=== PATIENT | male | born 1945 | race Caucasian/White ===

== ENCOUNTER 2017-08-17 07:00 | Inpatient (IN) ==
[2017-08-17] MEDS ORDERED: GLUCAGON 1 MG VIAL IM PRN (09:00)
[2017-08-17] MEDS ORDERED: DEXTROSE 50% 25 GM/50 ML VIAL IV PRN (09:00)
[2017-08-17 10:56] LABS: Basophils # 0.1 10*3/uL (0.0-0.2); Basophils % 0.8 % (0.0-0.8); Eosinophils # 0.3 10*3/uL (0.0-0.87); Eosinophils % 3.2 % (0.00-10.9); Hematocrit 40.2 VOL% (42.0-52.0); Hemoglobin 13.6 GM/DL (14.0-18.0); Immature Granulocytes % 0.4 %; Immature Granulocytes Absolute 0.04 #; Lymphocytes # 2.4 10*3/uL (1.4-4.0); Lymphocytes % 26.5 % (21.2-54.2); Mean Corpuscular HGB Conc 33.8 GM/DL (32-36); Mean Corpuscular Hemoglobin 31 PG (27-34); Mean Corpuscular Volume 90.5 FL (87-102); Mean Platelet Volume 11.7 FL (9.6-12.0); Monocytes # 0.6 10*3/uL (0.11-0.8); Monocytes % 6.6 % (1.7-12.7); Neutrophils # 5.7 10*3/uL (1.4-7.4); Neutrophils % 62.5 % (38.7-73.9); Platelet Count 232 T/CUMM (130-400); Red Blood Count 4.44 MC/CUMM (3.8-5.5); Red Cell Distribution Width 13.4 % (9.3-17.3); White Blood Count 9.1 T/CUMM (4-12)
[2017-08-17 11:28] LABS: Albumin 3.9 G/DL (3.4-5.0); Bilirubin,Total 0.5 MG/DL (0.2-1.0); Calcium 9.1 MG/DL (8.5-10.1); Total Protein 7.2 G/DL (6.4-8.3)
[2017-08-17] MEDS: METOPROLOL TARTRATE 25 MG TABLET PO SCH ×2 (11:56→21:23)
[2017-08-17] MEDS: CHLORHEXIDINE 0.12% ORAL RINSE 60 ML BOTTLE SWISH/SPIT SCH ×2 (11:56→21:23)
[2017-08-17 13:27] LABS: ABG HCO3 26.1 MMOL/L (20-26); ABG Oxygen Saturation 94.5 % (95-100); ABG PCO2 47.2 MM HG (35-48); ABG PH 7.379 (7.35-7.45); ABG PO2 74.3 MM HG (80-95); ABG TCO2 24.4 MMOL/L (23-27)
[2017-08-17] MEDS: CHLORHEXIDINE 4% SOLN 118 ML BOTTLE TOP SCH ×2 (15:17→21:23)
[2017-08-17] MEDS ORDERED: TAMSULOSIN 0.4 MG CAPSULE PO SCH (21:00)
[2017-08-17] MEDS ORDERED: ATORVASTATIN 40 MG TABLET PO SCH (21:00)
[2017-08-17] MEDS ORDERED: ZALEPLON 5 MG CAPSULE PO PRN (21:00)
[2017-08-17] MEDS: NABUMETONE 500 MG TABLET PO SCH (21:23)
[2017-08-18] MEDS ORDERED: PAPAVERINE 60 MG/2 ML VIAL ONE (05:15)
[2017-08-18] MEDS ORDERED: VANCOMYCIN 1,000 MG VIAL ONE (05:16)
[2017-08-18 05:17] LABS: Basophils # 0.1 10*3/uL (0.0-0.2); Basophils % 0.6 % (0.0-0.8); Eosinophils # 0.3 10*3/uL (0.0-0.87); Eosinophils % 3.1 % (0.00-10.9); Hematocrit 36.1 VOL% (42.0-52.0); Hemoglobin 12.3 GM/DL (14.0-18.0); Immature Granulocytes % 0.3 %; Immature Granulocytes Absolute 0.03 #; Lymphocytes # 1.9 10*3/uL (1.4-4.0); Lymphocytes % 21.1 % (21.2-54.2); Mean Corpuscular HGB Conc 34.1 GM/DL (32-36); Mean Corpuscular Hemoglobin 31 PG (27-34); Mean Corpuscular Volume 89.8 FL (87-102); Mean Platelet Volume 12.1 FL (9.6-12.0); Monocytes # 0.6 10*3/uL (0.11-0.8); Monocytes % 6.3 % (1.7-12.7); Neutrophils # 6.1 10*3/uL (1.4-7.4); Neutrophils % 68.6 % (38.7-73.9); Platelet Count 221 T/CUMM (130-400); Red Blood Count 4.02 MC/CUMM (3.8-5.5); Red Cell Distribution Width 13.4 % (9.3-17.3); White Blood Count 8.9 T/CUMM (4-12)
[2017-08-18] MEDS ORDERED: FAMOTIDINE 20 MG TABLET PO ONE (05:30)
[2017-08-18] MEDS ORDERED: DIAZEPAM 5 MG TABLET PO ONE (05:30)
[2017-08-18] MEDS ORDERED: SUFentanil 250 MCG/5 ML AMP ONE (05:40)
[2017-08-18] MEDS ORDERED: MIDAZOLAM 10 MG/2 ML VIAL ONE (05:40)
[2017-08-18] MEDS: METOPROLOL TARTRATE 25 MG TABLET PO SCH ×4 (05:44→21:59)
[2017-08-18] MEDS: CHLORHEXIDINE 4% SOLN 118 ML BOTTLE TOP SCH ×2 (05:46→11:56)
[2017-08-18] MEDS: CHLORHEXIDINE 0.12% ORAL RINSE 60 ML BOTTLE SWISH/SPIT SCH ×3 (05:47→22:15)
[2017-08-18 05:50] LABS: Albumin 2.9 G/DL (3.4-5.0); Bilirubin,Total 0.9 MG/DL (0.2-1.0); Calcium 8.7 MG/DL (8.5-10.1); Osmolality,Calculated 286.8 MOS/KG (273-304); Total Protein 6.3 G/DL (6.4-8.3)
[2017-08-18 05:56] LABS: PT Patient Result 10.6 SECS
[2017-08-18] MEDS ORDERED: CEFUROXIME INJ 1,500 MG in SYRINGE 1 EACH IV ONE (06:00)
[2017-08-18] MEDS ORDERED: LEVOTHYROXINE 50 MCG TABLET PO SCH (06:30)
[2017-08-18] MEDS ORDERED: glipiZIDE 5 MG TABLET PO SCH (07:30)
[2017-08-18 07:40] LABS: ABG Base Excess 2.6 MMOL/L (-2.5-2.5); ABG HCO3 26.8 MMOL/L (20-26); ABG Oxygen Saturation 99.6 % (95-100); ABG PH 7.422 (7.35-7.45); ABG TCO2 24.3 MMOL/L (23-27); Glucose Heart Surgery 115 MG/DL (74-106); Hematocrit Heart Surgery 35.2 PERCENT (42-52); Hemoglobin Heart Surgery 11.4 G/DL (14.0-18.0); PH Patient Temp Arterial 7.422; Patient Temperature 37 CELCIUS; Potassium Heart/CVR 3.8 MMOL/L (3.5-5.1); Sodium Heart/CVR 141 MMOL/L (135-145)
[2017-08-18] MEDS ORDERED: PHENYLEPHRINE DRIP 40 MG/250 ML PREMIX IV ONE (07:55)
[2017-08-18] MEDS ORDERED: POTASSIUM CHLORIDE RIDER 100 ML IV ONE (07:56)
[2017-08-18] MEDS ORDERED: CALCIUM CHLORIDE 1,000 MG/10 ML SYRINGE IV ONE (07:56)
[2017-08-18] MEDS ORDERED: SODIUM BICARBONATE 50 MEQ/50 ML SYRINGE IV ONE ×2 (07:57→09:47)
[2017-08-18] MEDS ORDERED: ALBUMIN 5% 12.5 GM/250 ML VIAL IV ONE (07:57)
[2017-08-18] MEDS ORDERED: EPINEPHrine 1 MG/10 ML SYRINGE ONE (07:57)
[2017-08-18] MEDS ORDERED: NITROPRUSSIDE 50 MG/2 ML VIAL ONE (07:57)
[2017-08-18 08:15] LABS: Apearance,Urine CLEAR (Clear); Bilirubin,Urine Negative (Negative); Blood, Urine Negative (Negative); Glucose,Urine (UA) Negative (Negative); Ketones,Urine Negative (Negative); Mucus,Urine Occasional /LPF (Occasional); Nitrite,Urine Negative (Negative); Protein,Urine Negative; RBC,Urine 1 /HPF (0-4); Urine Color Yellow (Yellow); Urine Specific Gravity 1.015 (1.001-1.035); Urine Urobilinogen < 2.0 EU/DL (0.2-1.0); WBC,Urine <1 /HPF (0-6)
[2017-08-18 08:44] LABS: PCO2 Patient Temp Venous 36.5 MM HG; PH Patient Temp Venous 7.486; PO2 Patient Temp Venous 43.1 MM HG; Potassium Heart/CVR 4.2 MMOL/L (3.5-5.1); VBG Base Excess 4.2 MEQ/L (0-4); VBG HCO3 28.1 MEQ/L (24-28); VBG Oxygen Saturation 86.8 %; VBG PCO2 40.2 MMHG (41-51); VBG PH 7.456; VBG PO2 49.4 MMHG (17-40)
[2017-08-18] MEDS ORDERED: ASPIRIN CHEW 81 MG TABLET PO SCH (09:00)
[2017-08-18] MEDS ORDERED: GABAPENTIN 300 MG CAPSULE PO SCH (09:00)
[2017-08-18 09:16] LABS: Hematocrit Heart Surgery 24.2 PERCENT (42-52); Hemoglobin Heart Surgery 7.8 G/DL (14.0-18.0); PH Patient Temp Venous 7.533; PO2 Patient Temp Venous 38.6 MM HG; Potassium Heart/CVR 4.5 MMOL/L (3.5-5.1); VBG Base Excess 4.3 MEQ/L (0-4); VBG HCO3 28.1 MEQ/L (24-28); VBG Oxygen Saturation 83.8 %; VBG PCO2 35.2 MMHG (41-51); VBG PH 7.502; VBG PO2 44.3 MMHG (17-40)
[2017-08-18 09:44] LABS: ABG Base Excess 2.7 MMOL/L (-2.5-2.5); ABG HCO3 26.9 MMOL/L (20-26); ABG Oxygen Saturation 99.8 % (95-100); ABG PCO2 34.3 MM HG (35-48); ABG PH 7.487 (7.35-7.45); ABG TCO2 23.9 MMOL/L (23-27); Glucose Heart Surgery 207 MG/DL (74-106); Hematocrit Heart Surgery 26.9 PERCENT (42-52); Hemoglobin Heart Surgery 8.7 G/DL (14.0-18.0); Ionized Calcium Arterial 1.25 MMOL/L (1.21-1.46); PCO2 Patient Temp Arterial 34.3 MMHG; PH Patient Temp Arterial 7.487; Patient Temperature 37 CELCIUS; Sodium Heart/CVR 137 MMOL/L (135-145)
[2017-08-18] MEDS ORDERED: MAGNESIUM SULFATE 1 GM/2 ML VIAL ONE (09:47)
[2017-08-18] MEDS ORDERED: PROTAMINE SULFATE 250 MG/25 ML VIAL IV ONE (09:47)
[2017-08-18] MEDS ORDERED: ALBUMIN 25% 25 GM/100 ML VIAL IV ONE (09:47)
[2017-08-18] MEDS ORDERED: HEPARIN 10,000 UNIT/10 ML VIAL ONE (09:47)
[2017-08-18] MEDS ORDERED: DEXTROSE 5% KCL 20 MEQ 20 MEQ/1,000 ML BAG IV ONE (09:47)
[2017-08-18] MEDS ORDERED: methylPREDNISolone SOD SUC 1,000 MG/8 ML VIAL ONE (09:47)
[2017-08-18] MEDS ORDERED: FUROSEMIDE 20 MG/2 ML VIAL ONE (09:48)
[2017-08-18] MEDS ORDERED: MANNITOL 12.5 GM/50 ML VIAL IV ONE (09:48)
[2017-08-18] MEDS ORDERED: MAGNESIUM SULF RIDER 2 GM in PREMIX 1 EACH IV PRN (10:09)
[2017-08-18] MEDS ORDERED: MIDAZOLAM 2 MG/2 ML VIAL IV PRN (10:09)
[2017-08-18] MEDS ORDERED: DEXTROSE 50% 25 GM/50 ML VIAL IV PRN ×2 (10:09)
[2017-08-18] MEDS ORDERED: VECURONIUM 10 MG VIAL IV PRN ×2 (10:09)
[2017-08-18] MEDS ORDERED: CALCIUM CHLORIDE 1,000 MG/10 ML SYRINGE IV PRN (10:09)
[2017-08-18] MEDS ORDERED: PHENYLEPHRINE DRIP 40 MG/250 ML PREMIX IV PRN (10:09)
[2017-08-18] MEDS ORDERED: ACETAMINOPHEN 650 MG SUPP RECTAL PRN (10:09)
[2017-08-18] MEDS ORDERED: LACTATED RINGERS 250 ML IV PRN (10:09)
[2017-08-18] MEDS ORDERED: NITROPRUSSIDE 100 MG in DEXTROSE 5% 250 ML IV PRN (10:09)
[2017-08-18] MEDS ORDERED: MORPHINE 10 MG/1 ML VIAL IV PRN (10:09)
[2017-08-18] MEDS ORDERED: MAGNESIUM SULF RIDER 4 GM in PREMIX 1 EACH IV PRN (10:09)
[2017-08-18] MEDS ORDERED: INSULIN REGULAR 100 UNIT/ML IV ONE (10:09)
[2017-08-18] MEDS ORDERED: MIDAZOLAM 10 MG/2 ML VIAL IV PRN (10:09)
[2017-08-18] MEDS ORDERED: INSULIN REGULAR 100 UNIT/ML IV PRN (10:09)
[2017-08-18] MEDS: SODIUM CHLORIDE 0.45% 1,000 ML IV SCH ×2 (10:30)
[2017-08-18 10:35] LABS: ABG Base Excess 2.7 MMOL/L (-2.5-2.5); ABG HCO3 26.4 MMOL/L (20-26); ABG Oxygen Saturation 96.9 % (95-100); ABG PH 7.471 (7.35-7.45); ABG PO2 96.2 MM HG (80-95); ABG TCO2 27.5 MMOL/L (23-27); Glucose Heart Surgery 184 MG/DL (74-106); Hemoglobin Heart Surgery 10.4 G/DL (14.0-18.0); Potassium Heart/CVR 3.8 MMOL/L (3.5-5.1)
[2017-08-18 10:39] LABS: Basophils # 0.1 10*3/uL (0.0-0.2); Basophils % 0.5 % (0.0-0.8); Eosinophils # 0.1 10*3/uL (0.0-0.87); Eosinophils % 1.1 % (0.00-10.9); Immature Granulocytes % 1.2 %; Immature Granulocytes Absolute 0.13 #; Lymphocytes # 1.7 10*3/uL (1.4-4.0); Lymphocytes % 15.6 % (21.2-54.2); Mean Corpuscular HGB Conc 33.4 GM/DL (32-36); Mean Corpuscular Hemoglobin 31 PG (27-34); Mean Corpuscular Volume 92.1 FL (87-102); Mean Platelet Volume 11.9 FL (9.6-12.0); Monocytes # 0.4 10*3/uL (0.11-0.8); Monocytes % 3.2 % (1.7-12.7); Neutrophils # 8.5 10*3/uL (1.4-7.4); Neutrophils % 78.4 % (38.7-73.9); Platelet Count 169 T/CUMM (130-400); Red Blood Count 3.15 MC/CUMM (3.8-5.5); Red Cell Distribution Width 13.4 % (9.3-17.3); White Blood Count 10.8 T/CUMM (4-12)
[2017-08-18 10:49] LABS: Hemoglobin 9.7 GM/DL (14.0-18.0)
[2017-08-18 10:50] LABS: INR 1.1; PT Patient Result 11.9 SECS; Partial Thromboplastin Time 30.8 SECS (0-40)
[2017-08-18] MEDS: ALBUMIN 5% 12.5 GM in PREMIX 1 EACH IV PRN ×4 (11:08→23:56)
[2017-08-18 11:11] LABS: Albumin 3.1 G/DL (3.4-5.0); Bilirubin,Total 1.2 MG/DL (0.2-1.0); Calcium 8.4 MG/DL (8.5-10.1); Osmolality,Calculated 289.1 MOS/KG (273-304); Potassium 3.9 MMOL/L (3.5-5.1); Total Protein 5.2 G/DL (6.4-8.3)
[2017-08-18] MEDS: POTASSIUM CHLORIDE RIDER 20 MEQ in PREMIX 1 EACH IV PRN ×6 (11:13→18:27)
[2017-08-18] MEDS: KETOROLAC 30 MG/1 ML VIAL IV SCH ×3 (11:14→22:14)
[2017-08-18] MEDS: LACTATED RINGERS 1,000 ML IV PRN ×3 (11:20→18:09)
[2017-08-18 11:24] LABS: ABG Base Excess 1.7 MMOL/L (-2.5-2.5); ABG HCO3 25.3 MMOL/L (20-26); ABG Oxygen Saturation 97.1 % (95-100); ABG PH 7.465 (7.35-7.45); ABG PO2 99.7 MM HG (80-95); ABG TCO2 26.4 MMOL/L (23-27); Glucose Heart Surgery 173 MG/DL (74-106); Potassium Heart/CVR 3.4 MMOL/L (3.5-5.1)
[2017-08-18 11:34] LABS: CKMB % 7.1 %; Troponin I Only 0.794 NG/ML (0.00-0.045)
[2017-08-18] MEDS: INSULIN REGULAR DRIP 100 ML IV SCH (11:51)
[2017-08-18] MEDS: SODIUM CHLORIDE 0.9% 1,000 ML IV SCH (11:56)
[2017-08-18] MEDS: NABUMETONE 500 MG TABLET PO SCH (11:58)
[2017-08-18] MEDS: hydrALAZINE 20 MG/1 ML VIAL IV PRN (11:59)
[2017-08-18 12:31] LABS: ABG Base Excess 0.7 MMOL/L (-2.5-2.5); ABG Oxygen Saturation 98.5 % (95-100); ABG PCO2 38.8 MM HG (35-48); ABG PH 7.418 (7.35-7.45); ABG TCO2 22.6 MMOL/L (23-27); Glucose Heart Surgery 172 MG/DL (74-106); Hematocrit Heart Surgery 32.8 PERCENT (42-52); Hemoglobin Heart Surgery 10.6 G/DL (14.0-18.0); Potassium Heart/CVR 3.8 MMOL/L (3.5-5.1)
[2017-08-18 14:06] LABS: ABG Base Excess 0.3 MMOL/L (-2.5-2.5); ABG HCO3 24.3 MMOL/L (20-26); ABG Oxygen Saturation 96.6 % (95-100); ABG PCO2 36.7 MM HG (35-48); ABG PH 7.439 (7.35-7.45); ABG PO2 95.8 MM HG (80-95); ABG TCO2 25.4 MMOL/L (23-27); Glucose Heart Surgery 143 MG/DL (74-106); Hemoglobin Heart Surgery 10.6 G/DL (14.0-18.0); Potassium Heart/CVR 4.5 MMOL/L (3.5-5.1)
[2017-08-18] MEDS: POTASSIUM CHLORIDE RIDER 10 MEQ in PREMIX 1 EACH IV PRN (14:30)
[2017-08-18] MEDS ORDERED: VECURONIUM 10 MG VIAL IV ONE ×2 (15:23→15:24)
[2017-08-18] MEDS ORDERED: ePHEDrine 50 MG/ML AMP ONE (15:23)
[2017-08-18] MEDS ORDERED: TRANEXAMIC ACID 1,000 MG/10 ML VIAL ONE (15:23)
[2017-08-18] MEDS ORDERED: SEVOFLURANE 1 UNIT/15 MINUTE INH ONE (15:23)
[2017-08-18] MEDS ORDERED: LACTATED RINGERS 1,000 ML IV ONE (15:24)
[2017-08-18] MEDS ORDERED: SODIUM CHLORIDE 0.9% 250 ML IV ONE (15:24)
[2017-08-18] MEDS ORDERED: SODIUM CHLORIDE 0.9% 2,000 ML IV ONE (15:24)
[2017-08-18] MEDS ORDERED: PHENYLEPHRINE 10 MG/1 ML VIAL IV ONE (15:24)
[2017-08-18] MEDS ORDERED: ETOMIDATE 40 MG/20 ML VIAL IV ONE (15:24)
[2017-08-18] MEDS ORDERED: HEPARIN/NACL 0.9% 2 UNITS/ML 500 ML IV ONE (15:24)
[2017-08-18] MEDS ORDERED: SODIUM CHLORIDE 0.9% 100 ML IV ONE (15:24)
[2017-08-18] MEDS ORDERED: CALCIUM CHLORIDE 1,000 MG/10 ML VIAL IV ONE (15:24)
[2017-08-18] MEDS ORDERED: NITROGLYCERIN DRIP 50 MG/250 ML BOTTLE IV ONE (15:24)
[2017-08-18 15:37] LABS: ABG Base Excess 1.1 MMOL/L (-2.5-2.5); ABG HCO3 25.4 MMOL/L (20-26); ABG Oxygen Saturation 98.5 % (95-100); ABG PCO2 42.3 MM HG (35-48); ABG PH 7.397 (7.35-7.45); ABG TCO2 23.5 MMOL/L (23-27); Glucose Heart Surgery 136 MG/DL (74-106); Hematocrit Heart Surgery 32.6 PERCENT (42-52); Hemoglobin Heart Surgery 10.6 G/DL (14.0-18.0)
[2017-08-18] MEDS ORDERED: AMIODARONE INJ 150 MG in DEXTROSE 5% 100 ML IV ONE (17:08)
[2017-08-18] MEDS ORDERED: AMIODARONE 150 MG/3 ML VIAL ONE (17:10)
[2017-08-18] MEDS ORDERED: AMIODARONE INJ 450 MG in DEXTROSE 5% 241 ML IV SCH ×2 (17:30→23:30)
[2017-08-18] MEDS: MORPHINE 4 MG/1 ML VIAL IV PRN ×2 (17:38→20:45)
[2017-08-18] MEDS: CEFUROXIME INJ 1,500 MG in SYRINGE 1 EACH IV SCH (17:43)
[2017-08-18 18:09] LABS: ABG Base Excess -0.9 MMOL/L (-2.5-2.5); ABG HCO3 23.9 MMOL/L (20-26); ABG Oxygen Saturation 97.6 % (95-100); ABG PCO2 40.2 MM HG (35-48); ABG PH 7.392 (7.35-7.45); ABG PO2 120.7 MM HG (80-95); ABG TCO2 25.1 MMOL/L (23-27); Glucose Heart Surgery 155 MG/DL (74-106); Hemoglobin Heart Surgery 10.7 G/DL (14.0-18.0); Potassium Heart/CVR 4.3 MMOL/L (3.5-5.1)
[2017-08-18] MEDS ORDERED: FUROSEMIDE 40 MG/4 ML VIAL IV ONE (21:55)
[2017-08-18 22:30] LABS: CKMB % 3.7 %
[2017-08-18 22:43] LABS: Troponin I Only 1.88 NG/ML (0.00-0.045)
[2017-08-18] MEDS: ONDANSETRON 4 MG/2 ML VIAL IV PRN (22:48)
[2017-08-19 00:28] LABS: CKMB % 3.4 %
[2017-08-19 00:32] LABS: Troponin I Only 1.94 NG/ML (0.00-0.045)
[2017-08-19 01:31] LABS: ABG Base Excess -0.4 MMOL/L (-2.5-2.5); ABG HCO3 24.1 MMOL/L (20-26); ABG Oxygen Saturation 97.9 % (95-100); ABG PCO2 38.8 MM HG (35-48); ABG PH 7.403 (7.35-7.45); ABG PO2 97.4 MM HG (80-95); ABG TCO2 21.9 MMOL/L (23-27); Glucose Heart Surgery 113 MG/DL (74-106); Hematocrit Heart Surgery 31.2 PERCENT (42-52); Hemoglobin Heart Surgery 10.1 G/DL (14.0-18.0); Potassium Heart/CVR 4.2 MMOL/L (3.5-5.1)
[2017-08-19] MEDS: INSULIN REGULAR DRIP 100 ML IV SCH ×2 (01:58→19:14)
[2017-08-19 02:44] LABS: ABG HCO3 24.4 MMOL/L (20-26); ABG Oxygen Saturation 96.9 % (95-100); ABG PCO2 43.1 MM HG (35-48); ABG PH 7.376 (7.35-7.45); Glucose Heart Surgery 109 MG/DL (74-106); Hematocrit Heart Surgery 30.9 PERCENT (42-52); Potassium Heart/CVR 4.3 MMOL/L (3.5-5.1)
[2017-08-19 04:18] LABS: Basophils % 0.1 % (0.0-0.8); Immature Granulocytes % 0.7 %; Immature Granulocytes Absolute 0.17 #; Lymphocytes # 1.1 10*3/uL (1.4-4.0); Lymphocytes % 4.7 % (21.2-54.2); Mean Corpuscular HGB Conc 33.3 GM/DL (32-36); Mean Corpuscular Hemoglobin 31 PG (27-34); Mean Corpuscular Volume 92.6 FL (87-102); Mean Platelet Volume 11.8 FL (9.6-12.0); Monocytes # 0.9 10*3/uL (0.11-0.8); Monocytes % 3.9 % (1.7-12.7); Neutrophils # 21.3 10*3/uL (1.4-7.4); Neutrophils % 90.6 % (38.7-73.9); Platelet Count 198 T/CUMM (130-400); Red Blood Count 3.24 MC/CUMM (3.8-5.5); Red Cell Distribution Width 13.6 % (9.3-17.3); White Blood Count 23.5 T/CUMM (4-12)
[2017-08-19 04:23] LABS: ABG Base Excess -0.3 MMOL/L (-2.5-2.5); ABG HCO3 25.7 MMOL/L (20-26); ABG PCO2 47.8 MM HG (35-48); ABG PH 7.348 (7.35-7.45); ABG PO2 93.6 MM HG (80-95); ABG TCO2 27.1 MMOL/L (23-27); Glucose Heart Surgery 124 MG/DL (74-106); Hemoglobin Heart Surgery 10.7 G/DL (14.0-18.0); Potassium Heart/CVR 4.4 MMOL/L (3.5-5.1)
[2017-08-19] MEDS: MORPHINE 4 MG/1 ML VIAL IV PRN ×2 (04:37→16:13)
[2017-08-19] MEDS: ONDANSETRON 4 MG/2 ML VIAL IV PRN (04:37)
[2017-08-19 04:40] LABS: Albumin 3.4 G/DL (3.4-5.0); Bilirubin,Direct 0.23 MG/DL (0.0-0.20); Bilirubin,Total 0.7 MG/DL (0.2-1.0); Calcium 8.8 MG/DL (8.5-10.1); Osmolality,Calculated 285.3 MOS/KG (273-304); Potassium 4.5 MMOL/L (3.5-5.1); Total Protein 5.6 G/DL (6.4-8.3)
[2017-08-19 04:54] LABS: Band Neutrophils 1 % (0-10); Eosinophils 1 % (0-10); Hypochromasia 1+; Lymphocytes 5 % (20-55); Platelet Estimate Adequate; Segmented Neutrophils 91 % (50-85); Total Cells Counted 100
[2017-08-19 04:59] LABS: ABG Base Excess -0.4 MMOL/L (-2.5-2.5); ABG HCO3 25.4 MMOL/L (20-26); ABG PCO2 46.7 MM HG (35-48); ABG PH 7.353 (7.35-7.45); ABG PO2 91.8 MM HG (80-95); ABG TCO2 26.8 MMOL/L (23-27); Glucose Heart Surgery 134 MG/DL (74-106); Hemoglobin Heart Surgery 10.8 G/DL (14.0-18.0); Potassium Heart/CVR 4.4 MMOL/L (3.5-5.1)
[2017-08-19] MEDS: CEFUROXIME INJ 1,500 MG in SYRINGE 1 EACH IV SCH ×2 (05:46→19:05)
[2017-08-19] MEDS: KETOROLAC 30 MG/1 ML VIAL IV SCH (05:46)
[2017-08-19 06:59] LABS: ABG Base Excess -0.6 MMOL/L (-2.5-2.5); ABG HCO3 23.9 MMOL/L (20-26); ABG Oxygen Saturation 95.2 % (95-100); ABG PCO2 46.5 MM HG (35-48); ABG PH 7.345 (7.35-7.45); ABG TCO2 23.3 MMOL/L (23-27); Glucose Heart Surgery 139 MG/DL (74-106); Hematocrit Heart Surgery 30.7 PERCENT (42-52); Hemoglobin Heart Surgery 9.9 G/DL (14.0-18.0); Potassium Heart/CVR 4.5 MMOL/L (3.5-5.1)
[2017-08-19 09:30] LABS: ABG Base Excess -0.8 MMOL/L (-2.5-2.5); ABG HCO3 23.7 MMOL/L (20-26); ABG Oxygen Saturation 95.1 % (95-100); ABG PCO2 43.2 MM HG (35-48); ABG PH 7.365 (7.35-7.45); ABG PO2 76.2 MM HG (80-95); ABG TCO2 22.5 MMOL/L (23-27); Glucose Heart Surgery 130 MG/DL (74-106); Hematocrit Heart Surgery 31.2 PERCENT (42-52); Hemoglobin Heart Surgery 10.1 G/DL (14.0-18.0); Potassium Heart/CVR 4.5 MMOL/L (3.5-5.1)
[2017-08-19] MEDS: METOPROLOL TARTRATE 25 MG TABLET PO SCH ×2 (09:48→21:42)
[2017-08-19] MEDS ORDERED: FUROSEMIDE 40 MG/4 ML VIAL IV ONE (10:42)
[2017-08-19] MEDS ORDERED: GLUCAGON 1 MG VIAL IM PRN (10:50)
[2017-08-19] MEDS ORDERED: DEXTROSE 50% 25 GM/50 ML VIAL IV PRN (10:50)
[2017-08-19] MEDS: AMIODARONE 200 MG TABLET PO SCH ×2 (11:54→21:42)
[2017-08-19 12:59] LABS: CKMB % 2.5 %; Troponin I Only 1.66 NG/ML (0.00-0.045)
[2017-08-19] MEDS: INSULIN REGULAR 100 UNIT/ML SUBCUT SCH ×3 (14:30→20:28)
[2017-08-19] MEDS: CHLORHEXIDINE 0.12% ORAL RINSE 60 ML BOTTLE SWISH/SPIT SCH ×2 (14:39→21:42)
[2017-08-19] MEDS: ASPIRIN EC 81 MG TABLET PO SCH (14:39)
[2017-08-19] MEDS: LEVOTHYROXINE 50 MCG TABLET PO SCH (14:39)
[2017-08-19] MEDS: hydrALAZINE 20 MG/1 ML VIAL IV PRN (16:12)
[2017-08-19] MEDS: cloNIDine 0.1 MG TABLET PO SCH ×2 (19:05→21:42)
[2017-08-19] MEDS ORDERED: oxyCODONE/ACETAMINOPHEN 5-325 MG TABLET PO PRN (19:23)
[2017-08-19] MEDS: KETOROLAC 30 MG/1 ML VIAL IV PRN (19:47)
[2017-08-19] MEDS: TAMSULOSIN 0.4 MG CAPSULE PO SCH (21:42)
[2017-08-19] MEDS: NABUMETONE 500 MG TABLET PO SCH (21:42)
[2017-08-19] MEDS: ATORVASTATIN 40 MG TABLET PO SCH (21:42)
[2017-08-20] MEDS: INSULIN REGULAR 100 UNIT/ML SUBCUT SCH ×6 (00:01→21:59)
[2017-08-20] MEDS ORDERED: FUROSEMIDE 40 MG/4 ML VIAL IV ONE (03:20)
[2017-08-20] MEDS: MORPHINE 4 MG/1 ML VIAL IV PRN (03:43)
[2017-08-20 03:50] LABS: ABG Base Excess 2.7 MMOL/L (-2.5-2.5); ABG HCO3 26.7 MMOL/L (20-26); ABG Oxygen Saturation 87.1 % (95-100); ABG PH 7.454 (7.35-7.45); ABG PO2 57.2 MM HG (80-95); ABG TCO2 27.9 MMOL/L (23-27)
[2017-08-20] MEDS ORDERED: ALBUTEROL/IPRATROPIUM 3 ML NEB RESP TX ONE (03:58)
[2017-08-20 04:19] LABS: Hematocrit 29.1 VOL% (42.0-52.0); Hemoglobin 9.8 GM/DL (14.0-18.0); Mean Corpuscular HGB Conc 33.7 GM/DL (32-36); Mean Corpuscular Hemoglobin 31 PG (27-34); Mean Corpuscular Volume 90.7 FL (87-102); Mean Platelet Volume 12.4 FL (9.6-12.0); Platelet Count 176 T/CUMM (130-400); Red Blood Count 3.21 MC/CUMM (3.8-5.5); White Blood Count 17.6 T/CUMM (4-12)
[2017-08-20 04:20] LABS: Basophils % 0.1 % (0.0-0.8); Immature Granulocytes Absolute 0.17 #; Lymphocytes % 5.6 % (21.2-54.2); Monocytes # 1.2 10*3/uL (0.11-0.8); Monocytes % 6.8 % (1.7-12.7); Neutrophils # 15.2 10*3/uL (1.4-7.4); Neutrophils % 86.5 % (38.7-73.9)
[2017-08-20] MEDS: KETOROLAC 30 MG/1 ML VIAL IV PRN (04:29)
[2017-08-20 04:47] LABS: Bilirubin,Direct 0.17 MG/DL (0.0-0.20); Bilirubin,Total 0.6 MG/DL (0.2-1.0); Calcium 8.3 MG/DL (8.5-10.1); Osmolality,Calculated 285.4 MOS/KG (273-304); Potassium 4.6 MMOL/L (3.5-5.1); Total Protein 5.5 G/DL (6.4-8.3)
[2017-08-20] MEDS: POTASSIUM CHLORIDE RIDER 10 MEQ in PREMIX 1 EACH IV PRN (05:14)
[2017-08-20 08:49] LABS: ABG Base Excess 3.5 MMOL/L (-2.5-2.5); ABG HCO3 27.5 MMOL/L (20-26); ABG Oxygen Saturation 94.1 % (95-100); ABG PH 7.434 (7.35-7.45); ABG PO2 69.8 MM HG (80-95); ABG TCO2 25.7 MMOL/L (23-27)
[2017-08-20] MEDS: FUROSEMIDE 40 MG/4 ML VIAL IV SCH ×2 (08:49→16:29)
[2017-08-20] MEDS: SODIUM CHLORIDE 0.45% 1,000 ML IV SCH ×2 (09:05→09:06)
[2017-08-20] MEDS: ALBUTEROL/IPRATROPIUM 3 ML NEB RESP TX SCH ×5 (09:09→23:25)
[2017-08-20] MEDS: DORNASE ALFA 2.5 MG/2.5 ML VIAL RESP TX SCH ×2 (09:09→22:33)
[2017-08-20] MEDS: MAGNESIUM OXIDE 400 MG TABLET PO SCH (09:25)
[2017-08-20] MEDS: AMIODARONE 200 MG TABLET PO SCH ×2 (09:25→21:59)
[2017-08-20] MEDS: METOPROLOL TARTRATE 25 MG TABLET PO SCH ×2 (09:25→21:59)
[2017-08-20] MEDS: LEVOTHYROXINE 50 MCG TABLET PO SCH (09:25)
[2017-08-20] MEDS: NABUMETONE 500 MG TABLET PO SCH ×2 (09:25→21:59)
[2017-08-20] MEDS: MEMANTINE 5 MG TABLET PO SCH (09:25)
[2017-08-20] MEDS: cloNIDine 0.1 MG TABLET PO SCH ×3 (09:25→22:00)
[2017-08-20] MEDS: GABAPENTIN 300 MG CAPSULE PO SCH (09:26)
[2017-08-20] MEDS: ASPIRIN EC 81 MG TABLET PO SCH (09:26)
[2017-08-20] MEDS: HALOPERIDOL 5 MG/ML AMP IV PRN (10:59)
[2017-08-20] MEDS: CHLORHEXIDINE 0.12% ORAL RINSE 60 ML BOTTLE SWISH/SPIT SCH ×2 (11:00→21:45)
[2017-08-20 12:17] LABS: ABG Base Excess 4.4 MMOL/L (-2.5-2.5); ABG HCO3 28.3 MMOL/L (20-26); ABG Oxygen Saturation 93.2 % (95-100); ABG PCO2 40.9 MM HG (35-48); ABG PH 7.454 (7.35-7.45); ABG PO2 65.5 MM HG (80-95); ABG TCO2 26.1 MMOL/L (23-27)
[2017-08-20] MEDS: KETOROLAC 30 MG/1 ML VIAL IV SCH ×2 (12:36→18:28)
[2017-08-20] MEDS: ATORVASTATIN 40 MG TABLET PO SCH (21:59)
[2017-08-20] MEDS: TAMSULOSIN 0.4 MG CAPSULE PO SCH (22:00)
[2017-08-21] MEDS: INSULIN REGULAR 100 UNIT/ML SUBCUT SCH ×6 (00:13→20:57)
[2017-08-21] MEDS: KETOROLAC 30 MG/1 ML VIAL IV SCH ×5 (00:33→23:25)
[2017-08-21] MEDS: HALOPERIDOL 5 MG/ML AMP IV PRN ×2 (01:31→10:30)
[2017-08-21 01:46] LABS: ABG Base Excess 7.6 MMOL/L (-2.5-2.5); ABG HCO3 31.4 MMOL/L (20-26); ABG Oxygen Saturation 95.2 % (95-100); ABG PCO2 43.5 MM HG (35-48); ABG PH 7.475 (7.35-7.45); ABG PO2 74.8 MM HG (80-95)
[2017-08-21 01:50] LABS: Basophils % 0.1 % (0.0-0.8); Eosinophils % 0.1 % (0.00-10.9); Hematocrit 29.1 VOL% (42.0-52.0); Hemoglobin 9.7 GM/DL (14.0-18.0); Immature Granulocytes % 0.5 %; Immature Granulocytes Absolute 0.07 #; Lymphocytes # 0.8 10*3/uL (1.4-4.0); Lymphocytes % 5.4 % (21.2-54.2); Mean Corpuscular HGB Conc 33.3 GM/DL (32-36); Mean Corpuscular Hemoglobin 31 PG (27-34); Mean Corpuscular Volume 91.8 FL (87-102); Mean Platelet Volume 11.8 FL (9.6-12.0); Monocytes # 1.1 10*3/uL (0.11-0.8); Monocytes % 7.6 % (1.7-12.7); Neutrophils # 12.2 10*3/uL (1.4-7.4); Neutrophils % 86.3 % (38.7-73.9); Platelet Count 158 T/CUMM (130-400); Red Blood Count 3.17 MC/CUMM (3.8-5.5); Red Cell Distribution Width 13.5 % (9.3-17.3); White Blood Count 14.1 T/CUMM (4-12)
[2017-08-21 02:16] LABS: Albumin 3.2 G/DL (3.4-5.0); Bilirubin,Direct 0.23 MG/DL (0.0-0.20); Bilirubin,Total 0.8 MG/DL (0.2-1.0); Calcium 8.3 MG/DL (8.5-10.1); Osmolality,Calculated 291.3 MOS/KG (273-304); Total Protein 5.7 G/DL (6.4-8.3)
[2017-08-21] MEDS: ALBUTEROL/IPRATROPIUM 3 ML NEB RESP TX SCH ×5 (04:33→20:00)
[2017-08-21] MEDS: DORNASE ALFA 2.5 MG/2.5 ML VIAL RESP TX SCH ×2 (07:43→20:00)
[2017-08-21] MEDS: GABAPENTIN 300 MG CAPSULE PO SCH (10:28)
[2017-08-21] MEDS: cloNIDine 0.1 MG TABLET PO SCH ×3 (10:28→20:58)
[2017-08-21] MEDS: LEVOTHYROXINE 50 MCG TABLET PO SCH (10:29)
[2017-08-21] MEDS: AMIODARONE 200 MG TABLET PO SCH ×2 (10:29→20:58)
[2017-08-21] MEDS: ASPIRIN EC 81 MG TABLET PO SCH (10:29)
[2017-08-21] MEDS: MEMANTINE 5 MG TABLET PO SCH (10:29)
[2017-08-21] MEDS: NABUMETONE 500 MG TABLET PO SCH ×2 (10:30→20:58)
[2017-08-21] MEDS: MAGNESIUM OXIDE 400 MG TABLET PO SCH (10:30)
[2017-08-21] MEDS: METOPROLOL TARTRATE 25 MG TABLET PO SCH ×2 (10:30→20:58)
[2017-08-21] MEDS: FUROSEMIDE 40 MG/4 ML VIAL IV SCH (10:31)
[2017-08-21] MEDS: CHLORHEXIDINE 0.12% ORAL RINSE 60 ML BOTTLE SWISH/SPIT SCH ×2 (10:32→21:30)
[2017-08-21] MEDS: ATORVASTATIN 40 MG TABLET PO SCH (20:58)
[2017-08-21] MEDS: TAMSULOSIN 0.4 MG CAPSULE PO SCH (21:04)
[2017-08-22] MEDS: ALBUTEROL/IPRATROPIUM 3 ML NEB RESP TX SCH ×7 (00:48→23:25)
[2017-08-22 05:04] LABS: Calcium 8.5 MG/DL (8.5-10.1); Osmolality,Calculated 289.3 MOS/KG (273-304); Potassium 3.9 MMOL/L (3.5-5.1)
[2017-08-22] MEDS: INSULIN REGULAR 100 UNIT/ML SUBCUT SCH ×6 (05:10→20:45)
[2017-08-22] MEDS: KETOROLAC 30 MG/1 ML VIAL IV SCH ×4 (06:20→23:49)
[2017-08-22] MEDS: DORNASE ALFA 2.5 MG/2.5 ML VIAL RESP TX SCH ×2 (08:25→19:22)
[2017-08-22] MEDS: FUROSEMIDE 40 MG/4 ML VIAL IV SCH (09:28)
[2017-08-22] MEDS: MEMANTINE 5 MG TABLET PO SCH (09:30)
[2017-08-22] MEDS: METOPROLOL TARTRATE 25 MG TABLET PO SCH ×2 (09:30→20:45)
[2017-08-22] MEDS: NABUMETONE 500 MG TABLET PO SCH ×2 (09:30→20:45)
[2017-08-22] MEDS: AMIODARONE 200 MG TABLET PO SCH ×2 (09:30→20:45)
[2017-08-22] MEDS: GABAPENTIN 300 MG CAPSULE PO SCH (09:31)
[2017-08-22] MEDS: ASPIRIN EC 81 MG TABLET PO SCH (09:31)
[2017-08-22] MEDS: MAGNESIUM OXIDE 400 MG TABLET PO SCH (09:31)
[2017-08-22] MEDS: cloNIDine 0.1 MG TABLET PO SCH ×3 (09:36→20:45)
[2017-08-22] MEDS: CHLORHEXIDINE 0.12% ORAL RINSE 60 ML BOTTLE SWISH/SPIT SCH ×2 (09:36→21:30)
[2017-08-22] MEDS: LEVOTHYROXINE 50 MCG TABLET PO SCH (09:44)
[2017-08-22] MEDS: ATORVASTATIN 40 MG TABLET PO SCH (20:45)
[2017-08-22] MEDS: TAMSULOSIN 0.4 MG CAPSULE PO SCH (20:45)
[2017-08-23] MEDS: ALBUTEROL/IPRATROPIUM 3 ML NEB RESP TX SCH ×6 (02:42→23:28)
[2017-08-23 04:13] LABS: ABG Base Excess 9.4 MMOL/L (-2.5-2.5); ABG Oxygen Saturation 90.6 % (95-100); ABG PCO2 43.7 MM HG (35-48); ABG PH 7.495 (7.35-7.45); ABG PO2 59.4 MM HG (80-95); ABG TCO2 30.4 MMOL/L (23-27); Allen Test Positive; Pt O2 Delivery Device Other
[2017-08-23] MEDS: INSULIN REGULAR 100 UNIT/ML SUBCUT SCH ×4 (04:34→13:22)
[2017-08-23 05:14] LABS: Basophils % 0.1 % (0.0-0.8); Eosinophils # 0.1 10*3/uL (0.0-0.87); Eosinophils % 0.3 % (0.00-10.9); Hemoglobin 10.4 GM/DL (14.0-18.0); Immature Granulocytes % 0.6 %; Immature Granulocytes Absolute 0.09 #; Lymphocytes # 0.9 10*3/uL (1.4-4.0); Lymphocytes % 6.4 % (21.2-54.2); Mean Corpuscular HGB Conc 34.7 GM/DL (32-36); Mean Corpuscular Hemoglobin 31 PG (27-34); Mean Corpuscular Volume 89.3 FL (87-102); Mean Platelet Volume 11.8 FL (9.6-12.0); Monocytes % 7.1 % (1.7-12.7); Neutrophils # 12.3 10*3/uL (1.4-7.4); Neutrophils % 85.5 % (38.7-73.9); Platelet Count 225 T/CUMM (130-400); Red Blood Count 3.36 MC/CUMM (3.8-5.5); Red Cell Distribution Width 13.2 % (9.3-17.3); White Blood Count 14.4 T/CUMM (4-12)
[2017-08-23 05:32] LABS: Calcium 8.4 MG/DL (8.5-10.1); Osmolality,Calculated 293.4 MOS/KG (273-304)
[2017-08-23] MEDS ORDERED: ONDANSETRON 4 MG/2 ML VIAL IV PRN (06:17)
[2017-08-23] MEDS ORDERED: DEXTROSE 50% 25 GM/50 ML VIAL IV PRN ×2 (06:17)
[2017-08-23] MEDS ORDERED: ALUMINUM/MAGNES/SIMETH MAX STR 30 ML UDCUP PO PRN (06:17)
[2017-08-23] MEDS ORDERED: POTASSIUM CHLORIDE 20 MEQ TABLET PO PRN (06:17)
[2017-08-23] MEDS ORDERED: ZALEPLON 5 MG CAPSULE PO PRN (06:17)
[2017-08-23] MEDS ORDERED: MAGNESIUM SULF RIDER 4 GM in PREMIX 1 EACH IV PRN (06:17)
[2017-08-23] MEDS ORDERED: oxyCODONE/ACETAMINOPHEN 5-325 MG TABLET PO PRN (06:17)
[2017-08-23] MEDS ORDERED: GLUCAGON 1 MG VIAL IM PRN ×2 (06:17)
[2017-08-23] MEDS ORDERED: MAGNESIUM SULF RIDER 2 GM in PREMIX 1 EACH IV PRN (06:17)
[2017-08-23] MEDS: SODIUM CHLOR 0.45% KCL 20 MEQ 20 MEQ/1,000 ML BAG IV SCH ×2 (09:28→14:21)
[2017-08-23] MEDS: ASPIRIN EC 81 MG TABLET PO SCH (09:29)
[2017-08-23] MEDS: DOCUSATE SODIUM 100 MG CAPSULE PO SCH (09:30)
[2017-08-23] MEDS: cloNIDine 0.1 MG TABLET PO SCH ×3 (09:30→22:10)
[2017-08-23] MEDS: AMIODARONE 200 MG TABLET PO SCH ×2 (09:30→22:09)
[2017-08-23] MEDS: MAGNESIUM OXIDE 400 MG TABLET PO SCH (09:31)
[2017-08-23] MEDS: FUROSEMIDE 40 MG/4 ML VIAL IV SCH (09:31)
[2017-08-23] MEDS: FERROUS SULFATE 325 MG TABLET PO SCH (09:31)
[2017-08-23] MEDS: CHLORHEXIDINE 0.12% ORAL RINSE 60 ML BOTTLE SWISH/SPIT SCH ×3 (09:32→22:10)
[2017-08-23] MEDS: GABAPENTIN 300 MG CAPSULE PO SCH (09:32)
[2017-08-23] MEDS: MEMANTINE 5 MG TABLET PO SCH (09:32)
[2017-08-23] MEDS: PANTOPRAZOLE 40 MG TABLET PO SCH (09:32)
[2017-08-23] MEDS: NABUMETONE 500 MG TABLET PO SCH ×2 (09:33→22:10)
[2017-08-23] MEDS: LEVOTHYROXINE 50 MCG TABLET PO SCH (09:33)
[2017-08-23] MEDS: METOPROLOL TARTRATE 25 MG TABLET PO SCH ×2 (09:35→22:09)
[2017-08-23] MEDS: KETOROLAC 30 MG/1 ML VIAL IV SCH (15:15)
[2017-08-23] MEDS ORDERED: CALCIUM CARBONATE CHEW 500 MG TABLET PO PRN (17:00)
[2017-08-23] MEDS: TAMSULOSIN 0.4 MG CAPSULE PO SCH (22:09)
[2017-08-23] MEDS: ATORVASTATIN 40 MG TABLET PO SCH (22:09)
[2017-08-24] MEDS: ALBUTEROL/IPRATROPIUM 3 ML NEB RESP TX SCH ×6 (02:53→23:10)
[2017-08-24 05:26] LABS: Basophils % 0.1 % (0.0-0.8); Eosinophils # 0.1 10*3/uL (0.0-0.87); Eosinophils % 0.9 % (0.00-10.9); Hematocrit 29.8 VOL% (42.0-52.0); Hemoglobin 10.1 GM/DL (14.0-18.0); Immature Granulocytes % 0.4 %; Immature Granulocytes Absolute 0.04 #; Lymphocytes # 0.9 10*3/uL (1.4-4.0); Lymphocytes % 9.3 % (21.2-54.2); Mean Corpuscular HGB Conc 33.9 GM/DL (32-36); Mean Corpuscular Hemoglobin 30 PG (27-34); Mean Platelet Volume 11.9 FL (9.6-12.0); Monocytes # 0.9 10*3/uL (0.11-0.8); Monocytes % 9.1 % (1.7-12.7); Neutrophils # 8.1 10*3/uL (1.4-7.4); Neutrophils % 80.2 % (38.7-73.9); Platelet Count 233 T/CUMM (130-400); Red Blood Count 3.35 MC/CUMM (3.8-5.5); White Blood Count 10.1 T/CUMM (4-12)
[2017-08-24 05:53] LABS: Bilirubin,Indirect 0.9 MG/DL (0.0-1.0)
[2017-08-24 05:58] LABS: Alanine Aminotransferase 66 U/L (16-61); Albumin 2.6 G/DL (3.4-5.0); Alkaline Phosphatase 117 U/L (45-117); Aspartate Amino Transferase 44 U/L (0-37); Blood Urea Nitrogen 64 MG/DL (7-18); Calcium 8.5 MG/DL (8.5-10.1); Glucose 137 MG/DL (74-106); Osmolality,Calculated 298.4 MOS/KG (273-304); Potassium 4.1 MMOL/L (3.5-5.1); Sodium 140 MMOL/L (136-145); Total Protein 5.6 G/DL (6.4-8.3)
[2017-08-24 06:00] LABS: Troponin I Only 0.118 NG/ML (0.00-0.045)
[2017-08-24] MEDS ORDERED: FUROSEMIDE 40 MG/4 ML VIAL IV ONE (06:00)
[2017-08-24] MEDS: CHOLECALCIFEROL 1,000 UNIT TABLET PO SCH (10:20)
[2017-08-24] MEDS: cloNIDine 0.1 MG TABLET PO SCH ×3 (10:21→21:38)
[2017-08-24] MEDS: DOCUSATE SODIUM 100 MG CAPSULE PO SCH (10:21)
[2017-08-24] MEDS: ASPIRIN EC 81 MG TABLET PO SCH (10:21)
[2017-08-24] MEDS: MEMANTINE 5 MG TABLET PO SCH (10:21)
[2017-08-24] MEDS: AMIODARONE 200 MG TABLET PO SCH ×2 (10:21→21:38)
[2017-08-24] MEDS: GABAPENTIN 300 MG CAPSULE PO SCH (10:22)
[2017-08-24] MEDS: METOPROLOL TARTRATE 25 MG TABLET PO SCH ×2 (10:22→21:38)
[2017-08-24] MEDS: LEVOTHYROXINE 50 MCG TABLET PO SCH (10:22)
[2017-08-24] MEDS: PANTOPRAZOLE 40 MG TABLET PO SCH (10:22)
[2017-08-24] MEDS: FERROUS SULFATE 325 MG TABLET PO SCH (10:22)
[2017-08-24] MEDS: CHLORHEXIDINE 0.12% ORAL RINSE 60 ML BOTTLE SWISH/SPIT SCH ×2 (10:27→21:38)
[2017-08-24] MEDS: NABUMETONE 500 MG TABLET PO SCH ×2 (10:27→21:38)
[2017-08-24] MEDS: TAMSULOSIN 0.4 MG CAPSULE PO SCH (21:38)
[2017-08-24] MEDS: ATORVASTATIN 40 MG TABLET PO SCH (21:38)
[2017-08-25] MEDS: ALBUTEROL/IPRATROPIUM 3 ML NEB RESP TX SCH ×5 (03:00→19:06)
[2017-08-25 04:27] LABS: Basophils % 0.3 % (0.0-0.8); Eosinophils # 0.4 10*3/uL (0.0-0.87); Eosinophils % 3.6 % (0.00-10.9); Hematocrit 30.1 VOL% (42.0-52.0); Hemoglobin 10.5 GM/DL (14.0-18.0); Immature Granulocytes % 0.6 %; Immature Granulocytes Absolute 0.06 #; Lymphocytes # 1.5 10*3/uL (1.4-4.0); Lymphocytes % 13.7 % (21.2-54.2); Mean Corpuscular HGB Conc 34.9 GM/DL (32-36); Mean Corpuscular Hemoglobin 31 PG (27-34); Mean Corpuscular Volume 89.1 FL (87-102); Mean Platelet Volume 11.8 FL (9.6-12.0); Monocytes # 0.9 10*3/uL (0.11-0.8); Monocytes % 8.4 % (1.7-12.7); Neutrophils # 7.9 10*3/uL (1.4-7.4); Neutrophils % 73.4 % (38.7-73.9); Platelet Count 254 T/CUMM (130-400); Red Blood Count 3.38 MC/CUMM (3.8-5.5); White Blood Count 10.7 T/CUMM (4-12)
[2017-08-25 05:06] LABS: Bilirubin,Indirect 0.7 MG/DL (0.0-1.0)
[2017-08-25 05:09] LABS: Alanine Aminotransferase 64 U/L (16-61); Albumin 2.5 G/DL (3.4-5.0); Alkaline Phosphatase 114 U/L (45-117); Aspartate Amino Transferase 38 U/L (0-37); Blood Urea Nitrogen 58 MG/DL (7-18); Calcium 8.8 MG/DL (8.5-10.1); Glucose 132 MG/DL (74-106); Osmolality,Calculated 294.5 MOS/KG (273-304); Potassium 4.1 MMOL/L (3.5-5.1); Sodium 139 MMOL/L (136-145); Total Protein 6.1 G/DL (6.4-8.3)
[2017-08-25 05:11] LABS: Troponin I Only 0.092 NG/ML (0.00-0.045)
[2017-08-25] MEDS: CHLORHEXIDINE 0.12% ORAL RINSE 60 ML BOTTLE SWISH/SPIT SCH ×2 (10:00→21:20)
[2017-08-25] MEDS: PANTOPRAZOLE 40 MG TABLET PO SCH (10:00)
[2017-08-25] MEDS: DOCUSATE SODIUM 100 MG CAPSULE PO SCH (10:00)
[2017-08-25] MEDS: ASPIRIN EC 81 MG TABLET PO SCH (10:00)
[2017-08-25] MEDS: GABAPENTIN 300 MG CAPSULE PO SCH (10:00)
[2017-08-25] MEDS: NABUMETONE 500 MG TABLET PO SCH ×2 (10:00→21:17)
[2017-08-25] MEDS: MEMANTINE 5 MG TABLET PO SCH (10:00)
[2017-08-25] MEDS: FERROUS SULFATE 325 MG TABLET PO SCH (10:00)
[2017-08-25] MEDS: LEVOTHYROXINE 50 MCG TABLET PO SCH (10:01)
[2017-08-25] MEDS: cloNIDine 0.1 MG TABLET PO SCH (10:01)
[2017-08-25] MEDS: CHOLECALCIFEROL 1,000 UNIT TABLET PO SCH (10:01)
[2017-08-25] MEDS: AMIODARONE 200 MG TABLET PO SCH (10:02)
[2017-08-25] MEDS: METOPROLOL TARTRATE 25 MG TABLET PO SCH (10:02)
[2017-08-25] MEDS: MAGNESIUM HYDROXIDE SUSP 30 ML UDCUP PO PRN (10:05)
[2017-08-25] MEDS: SODIUM CHLORIDE 0.9% 1,000 ML IV SCH ×2 (11:32→18:22)
[2017-08-25] MEDS: LEVOFLOXACIN INJ 750 MG in PREMIX 1 EACH IV SCH (11:37)
[2017-08-25] MEDS: LINEZOLID INJ 600 MG in PREMIX 1 EACH IV SCH ×2 (13:22→22:31)
[2017-08-25 15:02] LABS: ABG HCO3 27.8 MMOL/L (20-26); ABG Oxygen Saturation 83.5 % (95-100); ABG PCO2 46.4 MM HG (35-48); ABG PH 7.408 (7.35-7.45); ABG PO2 53.3 MM HG (80-95); ABG TCO2 26.7 MMOL/L (23-27)
[2017-08-25 18:20] LABS: Apearance,Urine Slightly Hazy (Clear); Bilirubin,Urine Negative (Negative); Blood, Urine Negative (Negative); Glucose,Urine (UA) Negative (Negative); Hyaline Casts,Urine 4 /LPF (0-3); Ketones,Urine Negative (Negative); Mucus,Urine Occasional /LPF (Occasional); Nitrite,Urine Negative (Negative); Protein,Urine Negative; RBC,Urine 1 /HPF (0-4); Squamous Epithelial Cell,Urine Occasional /HPF (0-10); Urine Specific Gravity 1.016 (1.001-1.035); WBC,Urine 1 /HPF (0-6)
[2017-08-25 18:24] LABS: Urine Color Dark yellow (Yellow)
[2017-08-25] MEDS: ATORVASTATIN 40 MG TABLET PO SCH (21:17)
[2017-08-25] MEDS: TAMSULOSIN 0.4 MG CAPSULE PO SCH (21:17)
[2017-08-26] MEDS: ALBUTEROL/IPRATROPIUM 3 ML NEB RESP TX SCH ×7 (00:21→22:51)
[2017-08-26] MEDS: SODIUM CHLORIDE 0.9% 1,000 ML IV SCH ×3 (03:38→14:13)
[2017-08-26 04:08] LABS: ABG Base Excess 3.5 MMOL/L (-2.5-2.5); ABG HCO3 27.5 MMOL/L (20-26); ABG Oxygen Saturation 93.4 % (95-100); ABG PCO2 42.1 MM HG (35-48); ABG PH 7.432 (7.35-7.45); ABG PO2 71.2 MM HG (80-95); ABG TCO2 25.9 MMOL/L (23-27)
[2017-08-26 05:40] LABS: Basophils # 0.1 10*3/uL (0.0-0.2); Basophils % 0.2 % (0.0-0.8); Hemoglobin 8.9 GM/DL (14.0-18.0); Immature Granulocytes % 1.2 %; Immature Granulocytes Absolute 0.47 #; Lymphocytes # 0.7 10*3/uL (1.4-4.0); Mean Corpuscular Hemoglobin 31 PG (27-34); Mean Corpuscular Volume 92.5 FL (87-102); Mean Platelet Volume 11.3 FL (9.6-12.0); Monocytes # 1.4 10*3/uL (0.11-0.8); Monocytes % 3.7 % (1.7-12.7); Neutrophils % 92.9 % (38.7-73.9); Platelet Count 193 T/CUMM (130-400); Red Blood Count 2.92 MC/CUMM (3.8-5.5); Red Cell Distribution Width 13.3 % (9.3-17.3); White Blood Count 37.7 T/CUMM (4-12)
[2017-08-26 05:53] LABS: Calcium 7.9 MG/DL (8.5-10.1); Osmolality,Calculated 300.8 MOS/KG (273-304); Potassium 3.5 MMOL/L (3.5-5.1)
[2017-08-26 06:06] LABS: Band Neutrophils 10 % (0-10); Lymphocytes 1 % (20-55); Segmented Neutrophils 87 % (50-85); Total Cells Counted 100
[2017-08-26 06:07] LABS: Hypochromasia 1+; Microcytosis 1+
[2017-08-26 06:08] LABS: Ovalocytes Slight; Platelet Estimate Adequate
[2017-08-26] MEDS: MEMANTINE 5 MG TABLET PO SCH (09:37)
[2017-08-26] MEDS: CHOLECALCIFEROL 1,000 UNIT TABLET PO SCH (09:37)
[2017-08-26] MEDS: GABAPENTIN 100 MG CAPSULE PO SCH (09:38)
[2017-08-26] MEDS: LEVOTHYROXINE 50 MCG TABLET PO SCH (09:38)
[2017-08-26] MEDS: NABUMETONE 500 MG TABLET PO SCH ×2 (09:38→20:49)
[2017-08-26] MEDS: PANTOPRAZOLE 40 MG TABLET PO SCH (09:38)
[2017-08-26] MEDS: FERROUS SULFATE 325 MG TABLET PO SCH (09:38)
[2017-08-26] MEDS: DOCUSATE SODIUM 100 MG CAPSULE PO SCH (09:38)
[2017-08-26] MEDS: ASPIRIN EC 81 MG TABLET PO SCH (09:38)
[2017-08-26] MEDS: CHLORHEXIDINE 0.12% ORAL RINSE 60 ML BOTTLE SWISH/SPIT SCH ×2 (09:39→20:49)
[2017-08-26] MEDS: LINEZOLID INJ 600 MG in PREMIX 1 EACH IV SCH ×2 (10:22→22:14)
[2017-08-26] MEDS: TAMSULOSIN 0.4 MG CAPSULE PO SCH (20:49)
[2017-08-26] MEDS: ATORVASTATIN 40 MG TABLET PO SCH (20:49)
[2017-08-27] MEDS: INSULIN REGULAR 100 UNIT/ML SUBCUT SCH ×5 (00:25→21:08)
[2017-08-27] MEDS: SODIUM CHLORIDE 0.9% 1,000 ML IV SCH ×3 (02:37→21:41)
[2017-08-27] MEDS: ALBUTEROL/IPRATROPIUM 3 ML NEB RESP TX SCH ×6 (03:24→23:43)
[2017-08-27 05:43] LABS: Basophils % 0.1 % (0.0-0.8); Eosinophils # 0.4 10*3/uL (0.0-0.87); Eosinophils % 1.3 % (0.00-10.9); Hematocrit 27.9 VOL% (42.0-52.0); Hemoglobin 9.2 GM/DL (14.0-18.0); Immature Granulocytes % 1.1 %; Immature Granulocytes Absolute 0.32 #; Lymphocytes # 1.1 10*3/uL (1.4-4.0); Lymphocytes % 3.7 % (21.2-54.2); Mean Corpuscular Hemoglobin 30 PG (27-34); Mean Corpuscular Volume 91.8 FL (87-102); Mean Platelet Volume 12.1 FL (9.6-12.0); Monocytes % 3.5 % (1.7-12.7); Neutrophils # 25.4 10*3/uL (1.4-7.4); Neutrophils % 90.3 % (38.7-73.9); Platelet Count 219 T/CUMM (130-400); Red Blood Count 3.04 MC/CUMM (3.8-5.5); Red Cell Distribution Width 13.2 % (9.3-17.3); White Blood Count 28.1 T/CUMM (4-12)
[2017-08-27 06:10] LABS: Band Neutrophils 3 % (0-10); Lymphocytes 2 % (20-55); Platelet Estimate Normal; Segmented Neutrophils 94 % (50-85); Total Cells Counted 100
[2017-08-27 06:19] LABS: Bilirubin,Indirect 0.7 MG/DL (0.0-1.0)
[2017-08-27 06:26] LABS: Alanine Aminotransferase 49 U/L (16-61); Albumin 2.4 G/DL (3.4-5.0); Alkaline Phosphatase 154 U/L (45-117); Aspartate Amino Transferase 54 U/L (0-37); Blood Urea Nitrogen 48 MG/DL (7-18); Calcium 8.1 MG/DL (8.5-10.1); Glucose 113 MG/DL (74-106); Osmolality,Calculated 294.3 MOS/KG (273-304); Potassium 3.8 MMOL/L (3.5-5.1); Sodium 141 MMOL/L (136-145); Total Protein 5.6 G/DL (6.4-8.3)
[2017-08-27 06:28] LABS: Troponin I Only 0.408 NG/ML (0.00-0.045)
[2017-08-27] MEDS: NABUMETONE 500 MG TABLET PO SCH ×2 (08:23→20:52)
[2017-08-27] MEDS: PANTOPRAZOLE 40 MG TABLET PO SCH (08:24)
[2017-08-27] MEDS: ASPIRIN EC 81 MG TABLET PO SCH (08:24)
[2017-08-27] MEDS: MEMANTINE 5 MG TABLET PO SCH (08:24)
[2017-08-27] MEDS: LEVOTHYROXINE 50 MCG TABLET PO SCH (08:24)
[2017-08-27] MEDS: CHOLECALCIFEROL 1,000 UNIT TABLET PO SCH (08:25)
[2017-08-27] MEDS: FERROUS SULFATE 325 MG TABLET PO SCH (08:25)
[2017-08-27] MEDS: DOCUSATE SODIUM 100 MG CAPSULE PO SCH (08:25)
[2017-08-27] MEDS: GABAPENTIN 100 MG CAPSULE PO SCH (08:25)
[2017-08-27] MEDS: CHLORHEXIDINE 0.12% ORAL RINSE 60 ML BOTTLE SWISH/SPIT SCH ×2 (08:26→20:52)
[2017-08-27] MEDS: LEVOFLOXACIN INJ 750 MG in PREMIX 1 EACH IV SCH (09:41)
[2017-08-27] MEDS: LINEZOLID INJ 600 MG in PREMIX 1 EACH IV SCH ×2 (11:24→21:41)
[2017-08-27] MEDS: TAMSULOSIN 0.4 MG CAPSULE PO SCH (20:52)
[2017-08-27] MEDS: ATORVASTATIN 40 MG TABLET PO SCH (20:52)
[2017-08-28] MEDS: ALBUTEROL/IPRATROPIUM 3 ML NEB RESP TX SCH ×6 (03:00→23:48)
[2017-08-28 05:23] LABS: Basophils # 0.1 10*3/uL (0.0-0.2); Basophils % 0.2 % (0.0-0.8); Eosinophils # 0.3 10*3/uL (0.0-0.87); Eosinophils % 1.4 % (0.00-10.9); Hematocrit 29.6 VOL% (42.0-52.0); Hemoglobin 9.7 GM/DL (14.0-18.0); Immature Granulocytes % 0.7 %; Immature Granulocytes Absolute 0.16 #; Lymphocytes # 1.6 10*3/uL (1.4-4.0); Lymphocytes % 7.5 % (21.2-54.2); Mean Corpuscular HGB Conc 32.8 GM/DL (32-36); Mean Corpuscular Hemoglobin 30 PG (27-34); Mean Corpuscular Volume 91.9 FL (87-102); Mean Platelet Volume 11.6 FL (9.6-12.0); Monocytes # 0.9 10*3/uL (0.11-0.8); Monocytes % 4.2 % (1.7-12.7); Neutrophils # 18.7 10*3/uL (1.4-7.4); Platelet Count 231 T/CUMM (130-400); Red Blood Count 3.22 MC/CUMM (3.8-5.5); Red Cell Distribution Width 13.4 % (9.3-17.3); White Blood Count 21.8 T/CUMM (4-12)
[2017-08-28 05:28] LABS: Bilirubin,Indirect 0.5 MG/DL (0.0-1.0)
[2017-08-28 05:32] LABS: Alanine Aminotransferase 50 U/L (16-61); Albumin 2.2 G/DL (3.4-5.0); Alkaline Phosphatase 145 U/L (45-117); Aspartate Amino Transferase 51 U/L (0-37); Blood Urea Nitrogen 28 MG/DL (7-18); Calcium 8.4 MG/DL (8.5-10.1); Glucose 119 MG/DL (74-106); Osmolality,Calculated 292.8 MOS/KG (273-304); Potassium 4.4 MMOL/L (3.5-5.1); Sodium 144 MMOL/L (136-145); Total Protein 5.9 G/DL (6.4-8.3)
[2017-08-28 05:42] LABS: Troponin I Only 0.231 NG/ML (0.00-0.045)
[2017-08-28 06:24] LABS: Band Neutrophils 1 % (0-10); Eosinophils 1 % (0-10); Lymphocytes 6 % (20-55); Segmented Neutrophils 90 % (50-85)
[2017-08-28 06:25] LABS: Platelet Estimate Normal; Total Cells Counted 100
[2017-08-28] MEDS: LEVOTHYROXINE 50 MCG TABLET PO SCH (08:20)
[2017-08-28] MEDS: GABAPENTIN 100 MG CAPSULE PO SCH (08:20)
[2017-08-28] MEDS: CHOLECALCIFEROL 1,000 UNIT TABLET PO SCH (08:21)
[2017-08-28] MEDS: MEMANTINE 5 MG TABLET PO SCH (08:21)
[2017-08-28] MEDS: NABUMETONE 500 MG TABLET PO SCH ×2 (08:21→21:27)
[2017-08-28] MEDS: ASPIRIN EC 81 MG TABLET PO SCH (08:21)
[2017-08-28] MEDS: PANTOPRAZOLE 40 MG TABLET PO SCH (08:21)
[2017-08-28] MEDS: DOCUSATE SODIUM 100 MG CAPSULE PO SCH (08:21)
[2017-08-28] MEDS: FERROUS SULFATE 325 MG TABLET PO SCH (08:21)
[2017-08-28] MEDS: INSULIN REGULAR 100 UNIT/ML SUBCUT SCH ×4 (08:21→21:53)
[2017-08-28] MEDS: CHLORHEXIDINE 0.12% ORAL RINSE 60 ML BOTTLE SWISH/SPIT SCH ×2 (08:22→21:53)
[2017-08-28] MEDS: LINEZOLID INJ 600 MG in PREMIX 1 EACH IV SCH (10:15)
[2017-08-28] MEDS: LEVOFLOXACIN INJ 500 MG in PREMIX 1 EACH IV SCH (16:18)
[2017-08-28] MEDS: ATORVASTATIN 40 MG TABLET PO SCH (21:27)
[2017-08-28] MEDS: TAMSULOSIN 0.4 MG CAPSULE PO SCH (21:27)
[2017-08-28] MEDS: MAGNESIUM HYDROXIDE SUSP 30 ML UDCUP PO PRN (21:38)
[2017-08-28] MEDS: SODIUM CHLORIDE 0.9% 1,000 ML IV SCH ×2 (22:31→22:32)
[2017-08-29] MEDS: ACETAMINOPHEN 325 MG TABLET PO PRN (00:42)
[2017-08-29] MEDS ORDERED: METOPROLOL TARTRATE 25 MG TABLET PO ONE (01:30)
[2017-08-29] MEDS: ALBUTEROL/IPRATROPIUM 3 ML NEB RESP TX SCH ×5 (03:24→19:01)
[2017-08-29] MEDS: NABUMETONE 500 MG TABLET PO SCH ×2 (09:09→21:16)
[2017-08-29] MEDS: PANTOPRAZOLE 40 MG TABLET PO SCH (09:09)
[2017-08-29] MEDS: CHOLECALCIFEROL 1,000 UNIT TABLET PO SCH (09:09)
[2017-08-29] MEDS: cloNIDine 0.1 MG TABLET PO SCH ×2 (09:09→21:16)
[2017-08-29] MEDS: CHLORHEXIDINE 0.12% ORAL RINSE 60 ML BOTTLE SWISH/SPIT SCH ×2 (09:09→21:37)
[2017-08-29] MEDS: ASPIRIN EC 81 MG TABLET PO SCH (09:09)
[2017-08-29] MEDS: FERROUS SULFATE 325 MG TABLET PO SCH (09:09)
[2017-08-29] MEDS: DOCUSATE SODIUM 100 MG CAPSULE PO SCH (09:09)
[2017-08-29] MEDS: MEMANTINE 5 MG TABLET PO SCH (09:09)
[2017-08-29] MEDS: LEVOTHYROXINE 50 MCG TABLET PO SCH (09:09)
[2017-08-29] MEDS: GABAPENTIN 100 MG CAPSULE PO SCH (09:09)
[2017-08-29] MEDS: INSULIN REGULAR 100 UNIT/ML SUBCUT SCH ×4 (09:10→21:16)
[2017-08-29] MEDS: METOPROLOL TARTRATE 25 MG TABLET PO SCH ×2 (09:10→21:16)
[2017-08-29] MEDS: LEVOFLOXACIN INJ 500 MG in PREMIX 1 EACH IV SCH (15:54)
[2017-08-29] MEDS: TAMSULOSIN 0.4 MG CAPSULE PO SCH (21:16)
[2017-08-29] MEDS: ATORVASTATIN 40 MG TABLET PO SCH (21:16)
[2017-08-30] MEDS: ALBUTEROL/IPRATROPIUM 3 ML NEB RESP TX SCH ×7 (01:59→23:12)
[2017-08-30] MEDS: MEMANTINE 5 MG TABLET PO SCH (10:00)
[2017-08-30] MEDS: LEVOTHYROXINE 50 MCG TABLET PO SCH (10:00)
[2017-08-30] MEDS: METOPROLOL TARTRATE 25 MG TABLET PO SCH ×2 (10:00→21:42)
[2017-08-30] MEDS: NABUMETONE 500 MG TABLET PO SCH ×2 (10:00→21:42)
[2017-08-30] MEDS: cloNIDine 0.1 MG TABLET PO SCH ×2 (10:00→21:42)
[2017-08-30] MEDS: GABAPENTIN 100 MG CAPSULE PO SCH (10:00)
[2017-08-30] MEDS: ASPIRIN EC 81 MG TABLET PO SCH (10:00)
[2017-08-30] MEDS: PANTOPRAZOLE 40 MG TABLET PO SCH (10:00)
[2017-08-30] MEDS: FERROUS SULFATE 325 MG TABLET PO SCH (10:00)
[2017-08-30] MEDS: CHLORHEXIDINE 0.12% ORAL RINSE 60 ML BOTTLE SWISH/SPIT SCH ×2 (10:01→21:43)
[2017-08-30] MEDS: INSULIN REGULAR 100 UNIT/ML SUBCUT SCH ×4 (10:01→21:43)
[2017-08-30] MEDS: DOCUSATE SODIUM 100 MG CAPSULE PO SCH (10:01)
[2017-08-30] MEDS: CHOLECALCIFEROL 1,000 UNIT TABLET PO SCH (10:01)
[2017-08-30] MEDS: LEVOFLOXACIN INJ 500 MG in PREMIX 1 EACH IV SCH (16:17)
[2017-08-30] MEDS: TAMSULOSIN 0.4 MG CAPSULE PO SCH (21:42)
[2017-08-30] MEDS: ATORVASTATIN 40 MG TABLET PO SCH (21:42)
[2017-08-31] MEDS: ALBUTEROL/IPRATROPIUM 3 ML NEB RESP TX SCH ×5 (01:41→19:29)
[2017-08-31] MEDS: DOCUSATE SODIUM 100 MG CAPSULE PO SCH (09:06)
[2017-08-31] MEDS: LEVOTHYROXINE 50 MCG TABLET PO SCH (09:06)
[2017-08-31] MEDS: INSULIN REGULAR 100 UNIT/ML SUBCUT SCH ×4 (09:06→20:55)
[2017-08-31] MEDS: NABUMETONE 500 MG TABLET PO SCH ×2 (09:06→20:52)
[2017-08-31] MEDS: MEMANTINE 5 MG TABLET PO SCH (09:06)
[2017-08-31] MEDS: METOPROLOL TARTRATE 25 MG TABLET PO SCH (09:06)
[2017-08-31] MEDS: cloNIDine 0.1 MG TABLET PO SCH (09:07)
[2017-08-31] MEDS: FERROUS SULFATE 325 MG TABLET PO SCH (09:07)
[2017-08-31] MEDS: GABAPENTIN 100 MG CAPSULE PO SCH (09:07)
[2017-08-31] MEDS: PANTOPRAZOLE 40 MG TABLET PO SCH (09:07)
[2017-08-31] MEDS: ASPIRIN EC 81 MG TABLET PO SCH (09:07)
[2017-08-31] MEDS: CHOLECALCIFEROL 1,000 UNIT TABLET PO SCH (09:07)
[2017-08-31] MEDS: CHLORHEXIDINE 0.12% ORAL RINSE 60 ML BOTTLE SWISH/SPIT SCH ×2 (09:07→20:53)
[2017-08-31] MEDS: ACETAMINOPHEN 325 MG TABLET PO PRN (12:15)
[2017-08-31] MEDS: LEVOFLOXACIN INJ 500 MG in PREMIX 1 EACH IV SCH (16:30)
[2017-08-31] MEDS: ATORVASTATIN 40 MG TABLET PO SCH (20:53)
[2017-08-31] MEDS: TAMSULOSIN 0.4 MG CAPSULE PO SCH (20:53)
[2017-09-01] MEDS: ALBUTEROL/IPRATROPIUM 3 ML NEB RESP TX SCH ×6 (00:56→20:59)
[2017-09-01 04:31] LABS: Basophils # 0.1 10*3/uL (0.0-0.2); Basophils % 0.6 % (0.0-0.8); Eosinophils # 0.5 10*3/uL (0.0-0.87); Eosinophils % 3.4 % (0.00-10.9); Hematocrit 32.2 VOL% (42.0-52.0); Hemoglobin 10.6 GM/DL (14.0-18.0); Immature Granulocytes % 1.3 %; Immature Granulocytes Absolute 0.18 #; Lymphocytes % 14.3 % (21.2-54.2); Mean Corpuscular HGB Conc 32.9 GM/DL (32-36); Mean Corpuscular Hemoglobin 30 PG (27-34); Mean Platelet Volume 11.1 FL (9.6-12.0); Neutrophils # 10.5 10*3/uL (1.4-7.4); Neutrophils % 73.4 % (38.7-73.9); Platelet Count 243 T/CUMM (130-400); Red Cell Distribution Width 13.5 % (9.3-17.3); White Blood Count 14.3 T/CUMM (4-12)
[2017-09-01 05:06] LABS: Albumin 2.4 G/DL (3.4-5.0); Bilirubin,Total 0.7 MG/DL (0.2-1.0); Calcium 8.5 MG/DL (8.5-10.1); Osmolality,Calculated 284.3 MOS/KG (273-304); Potassium 4.3 MMOL/L (3.5-5.1); Total Protein 6.1 G/DL (6.4-8.3)
[2017-09-01] MEDS: INSULIN REGULAR 100 UNIT/ML SUBCUT SCH ×4 (08:57→21:46)
[2017-09-01] MEDS: FERROUS SULFATE 325 MG TABLET PO SCH (08:58)
[2017-09-01] MEDS: NABUMETONE 500 MG TABLET PO SCH ×2 (08:58→21:48)
[2017-09-01] MEDS: PANTOPRAZOLE 40 MG TABLET PO SCH (08:58)
[2017-09-01] MEDS: ASPIRIN EC 81 MG TABLET PO SCH (08:58)
[2017-09-01] MEDS: GABAPENTIN 100 MG CAPSULE PO SCH (08:58)
[2017-09-01] MEDS: CHLORHEXIDINE 0.12% ORAL RINSE 60 ML BOTTLE SWISH/SPIT SCH ×2 (08:58→21:49)
[2017-09-01] MEDS: CHOLECALCIFEROL 1,000 UNIT TABLET PO SCH (08:58)
[2017-09-01] MEDS: MEMANTINE 5 MG TABLET PO SCH (08:58)
[2017-09-01] MEDS: DOCUSATE SODIUM 100 MG CAPSULE PO SCH (08:58)
[2017-09-01] MEDS: LEVOTHYROXINE 50 MCG TABLET PO SCH (08:58)
[2017-09-01] MEDS: ACETAMINOPHEN 325 MG TABLET PO PRN (14:47)
[2017-09-01] MEDS: LEVOFLOXACIN INJ 500 MG in PREMIX 1 EACH IV SCH (16:21)
[2017-09-01] MEDS: TAMSULOSIN 0.4 MG CAPSULE PO SCH (21:48)
[2017-09-01] MEDS: ATORVASTATIN 40 MG TABLET PO SCH (21:49)
[2017-09-02] MEDS: ALBUTEROL/IPRATROPIUM 3 ML NEB RESP TX SCH ×6 (00:17→19:05)
[2017-09-02] MEDS: INSULIN REGULAR 100 UNIT/ML SUBCUT SCH ×4 (08:02→20:07)
[2017-09-02] MEDS: CHOLECALCIFEROL 1,000 UNIT TABLET PO SCH (08:59)
[2017-09-02] MEDS: FERROUS SULFATE 325 MG TABLET PO SCH (08:59)
[2017-09-02] MEDS: CHLORHEXIDINE 0.12% ORAL RINSE 60 ML BOTTLE SWISH/SPIT SCH ×2 (08:59→21:26)
[2017-09-02] MEDS: PANTOPRAZOLE 40 MG TABLET PO SCH (08:59)
[2017-09-02] MEDS: GABAPENTIN 100 MG CAPSULE PO SCH (08:59)
[2017-09-02] MEDS: NABUMETONE 500 MG TABLET PO SCH ×2 (08:59→21:26)
[2017-09-02] MEDS: LEVOTHYROXINE 50 MCG TABLET PO SCH (08:59)
[2017-09-02] MEDS: MEMANTINE 5 MG TABLET PO SCH (08:59)
[2017-09-02] MEDS: ASPIRIN EC 81 MG TABLET PO SCH (08:59)
[2017-09-02] MEDS: DOCUSATE SODIUM 100 MG CAPSULE PO SCH (08:59)
[2017-09-02] MEDS: LEVOFLOXACIN INJ 500 MG in PREMIX 1 EACH IV SCH (16:19)
[2017-09-02] MEDS: ATORVASTATIN 40 MG TABLET PO SCH (21:25)
[2017-09-02] MEDS: TAMSULOSIN 0.4 MG CAPSULE PO SCH (21:26)
[2017-09-03] MEDS: ALBUTEROL/IPRATROPIUM 3 ML NEB RESP TX SCH ×7 (00:05→23:42)
[2017-09-03] MEDS: INSULIN REGULAR 100 UNIT/ML SUBCUT SCH ×4 (08:54→21:15)
[2017-09-03] MEDS: CHOLECALCIFEROL 1,000 UNIT TABLET PO SCH (08:55)
[2017-09-03] MEDS: MEMANTINE 5 MG TABLET PO SCH (08:55)
[2017-09-03] MEDS: GABAPENTIN 100 MG CAPSULE PO SCH (08:55)
[2017-09-03] MEDS: FERROUS SULFATE 325 MG TABLET PO SCH (08:56)
[2017-09-03] MEDS: DOCUSATE SODIUM 100 MG CAPSULE PO SCH (08:56)
[2017-09-03] MEDS: LEVOTHYROXINE 50 MCG TABLET PO SCH (08:56)
[2017-09-03] MEDS: ASPIRIN EC 81 MG TABLET PO SCH (08:56)
[2017-09-03] MEDS: CHLORHEXIDINE 0.12% ORAL RINSE 60 ML BOTTLE SWISH/SPIT SCH ×2 (08:56→21:16)
[2017-09-03] MEDS: PANTOPRAZOLE 40 MG TABLET PO SCH (08:56)
[2017-09-03] MEDS: NABUMETONE 500 MG TABLET PO SCH ×2 (08:56→21:14)
[2017-09-03] MEDS: MAGNESIUM HYDROXIDE SUSP 30 ML UDCUP PO PRN (08:56)
[2017-09-03] MEDS: LEVOFLOXACIN INJ 500 MG in PREMIX 1 EACH IV SCH (16:49)
[2017-09-03] MEDS: ATORVASTATIN 40 MG TABLET PO SCH (21:15)
[2017-09-03] MEDS: TAMSULOSIN 0.4 MG CAPSULE PO SCH (21:16)
[2017-09-04] MEDS: ALBUTEROL/IPRATROPIUM 3 ML NEB RESP TX SCH ×2 (03:46→06:56)
[2017-09-04 07:57] VITALS: BP 105/66
[2017-09-04] MEDS: INSULIN REGULAR 100 UNIT/ML SUBCUT SCH (09:17)
[2017-09-04] MEDS: CHOLECALCIFEROL 1,000 UNIT TABLET PO SCH (09:18)
[2017-09-04] MEDS: MEMANTINE 5 MG TABLET PO SCH (09:18)
[2017-09-04] MEDS: CHLORHEXIDINE 0.12% ORAL RINSE 60 ML BOTTLE SWISH/SPIT SCH (09:18)
[2017-09-04] MEDS: GABAPENTIN 100 MG CAPSULE PO SCH (09:18)
[2017-09-04] MEDS: PANTOPRAZOLE 40 MG TABLET PO SCH (09:18)
[2017-09-04] MEDS: LEVOTHYROXINE 50 MCG TABLET PO SCH (09:18)
[2017-09-04] MEDS: ASPIRIN EC 81 MG TABLET PO SCH (09:18)
[2017-09-04] MEDS: FERROUS SULFATE 325 MG TABLET PO SCH (09:18)
[2017-09-04] MEDS: NABUMETONE 500 MG TABLET PO SCH (09:18)
[2017-09-04] MEDS: DOCUSATE SODIUM 100 MG CAPSULE PO SCH (09:18)
== END 2017-09-04 11:43 | disposition home or self-care (01) | DRG 236 ==
LOC: N.2W 09:52 → N.TELEN 14:30 → N.CVR 08-18 07:22 → N.ICU 08-19 12:40 → N.TELES 08-23 15:05 → N.ICU 08-25 16:15 → N.TELES 08-27 16:36